=== PATIENT | female | born 1995 | race Caucasian/White ===

== ENCOUNTER 2018-03-08 14:17 | Emergency (ER) | payer OTHER ==
[~2018-03-08] VITALS: Ht 152.4 cm; Wt 58.9 kg
[2018-03-08 14:23] VITALS: TEMP 37.2; Ht 152.4 cm; Wt 58.9 kg
[2018-03-08] MEDS ORDERED: METOCLOPRAMIDE HCL INJ 5 MG/ML 2 ML VIAL IV STA (14:35)
[2018-03-08] MEDS ORDERED: KETOROLAC TROMETHAMINE 30 MG/ML VIAL IV STA (14:35)
[2018-03-08] MEDS ORDERED: SODIUM CHLORIDE 0.9% 1000ML 1,000 ML IV STA (14:35)
[2018-03-08] MEDS ORDERED: LTHSR/300 PO (14:40)
[2018-03-08] MEDS ORDERED: FLUO10CA23 PO (14:40)
[2018-03-08] MEDS ORDERED: OPTIRAY 320 IV PRN (14:45)
[2018-03-08 14:52] LABS: BASO % 0.3 %; BASO ABS # 0.02 K/uL (0-0.2); EOS % 3.2 %; EOS ABS # 0.23 K/uL (0-0.5); HEMATOCRIT 38.9 % (37-47); HEMOGLOBIN 12.8 g/dL (12.0-16.0); IG# 0.01 K/uL (0.00-0.02); LYMPH % 19.8 %; LYMPH ABS # 1.43 K/uL (1.2-3.4); MEAN CELL VOLUME 87.4 fL (80-100); MEAN CORPUSCULAR HEMOGLOBIN 28.8 pg (25-34); MEAN CORPUSCULAR HGB CONC 32.9 g/dl (32-36); MEAN PLATELET VOLUME 9.9 fL (7.4-10.4); MONO % 12.9 %; MONO ABS # 0.93 K/uL (0.11-0.59); NEUT % 63.7 %; NEUT ABS # 4.59 K/uL (1.4-6.5); PLATELET COUNT 229 K/uL (130-400); RED CELL DISTRIBUTION WIDTH CV 13.1 % (11.5-14.5); WHITE BLOOD COUNT 7.21 K/uL (4.8-10.8)
[2018-03-08 15:07] LABS: BLOOD UREA NITROGEN 12 mg/dl (7-18); CALCIUM 8.8 mg/dl (8.5-10.1); CARBON DIOXIDE 22 mmol/L (21-32); CREATININE 0.86 mg/dl (0.60-1.20); GLUCOSE 84 mg/dl (70-99); LIPASE 88 U/L (73-393); POTASSIUM 3.5 mmol/L (3.5-5.1); SODIUM 139 mmol/L (136-145)
[2018-03-08 15:10] LABS: ALKALINE PHOSPHATASE 81 U/L (45-117); ALT/SGPT 23 U/L (12-78); AST/SGOT 16 U/L (15-37); TOTAL PROTEIN 7.4 gm/dl (6.4-8.2)
--- NOTE | 2018-03-08 15:46 | EMERGENCY ROOM VISIT NOTE ---
History Report prepared by Kayleigh: Jennifer Gallagher Under the Supervision of: Dr. Robin Pizarro M.D. First contact with patient: 14:27 Chief Complaint: ABDOMINAL PAIN Stated Complaint: ABD PAIN,VOMITING,DIARRHEA History of Present Illness The patient is a 22 year old female who presents to the Emergency Room with complaints of persistent right-sided abdominal pain that began earlier today. She reports that she has been vomiting and experiencing diarrhea for the past 2 days. The patient went to [facility], where she was prescribed Dicyclomine and Ondansetron. She denies eating any questionable food sources, noting she has been unable to eat solid food since 3 days ago. The patient states that her mother had similar symptoms. She denies any chance of being because she had the depo shot, noting that she is unsure when her last menstrual period was. The patient takes lithium pills. Source of History: patient Onset: earliert today Position: abdomen (right-sided) Quality: other (right-sided abdominal pain) Timing: other (persistent) Associated Symptoms: + vomiting, + diarrhea Note: Associated symptoms: unable to eat solid food Review of Systems See HPI for pertinent positives & negatives. A total of 10 systems reviewed and were otherwise negative. Past Medical & Surgical Medical Problems: (1) Bronchitis Family History Hypertension Kidney disease Kidney stones Social History Smoking Status: Never Smoker Smokeless Tobacco Use: No Alcohol Use: none Drug Use: none Marital Status: single Housing Status: lives with roommate Occupation Status: [employer] Current/Historical Medications Scheduled Fluoxetine Hcl (Fluoxetine Hcl), 10 MG PO DAILY [place] Carbonate ([place] Carbonate), 300 MG PO DAILY Scheduled PRN Metoclopramide (Reglan), 10 MG PO Q6H PRN for Nausea Allergies Coded Allergies: No Known Allergies (Unverified , 03/08/18) Physical Exam Vital Signs Date Time Temp Pulse Resp B/P (MAP) Pulse Ox O2 Delivery O2 Flow Rate FiO2 03/08/18 18:23 58 16 101/57 98 03/08/18 16:33 68 16 101/48 98 Room Air 03/08/18 15:04 68 16 119/78 98 Room Air 03/08/18 14:23 37.2 68 20 113/66 100 Room Air Physical Exam GENERAL: Awake, alert, well-appearing, in no acute distress HENT: Normocephalic, atraumatic. Oropharynx unremarkable. EYES: Normal conjunctiva. Sclera non-icteric. NECK: Supple. No nuchal rigidity. FROM. No JVD. RESPIRATORY: Clear to auscultation. CARDIAC: Regular rate, normal rhythm. Extremities warm and well perfused. Pulses equal. ABDOMEN: Soft, non-distended. Mild right-sided tenderness to palpation. No rebound, but positive guarding. No masses. RECTAL: Deferred. MUSCULOSKELETAL: Chest examination reveals no tenderness. The back is symmetrical on inspection without obvious abnormality. There is no CVA tenderness to palpation. No joint edema. LOWER EXTREMITIES: Calves are equal size bilaterally and non-tender. No edema. No discoloration. NEURO: Normal sensorium. No sensory or motor deficits noted. SKIN: No rash or jaundice noted. Medical Decision & Procedures ER Provider Diagnostic Interpretation: Radiology results as stated below per my review and radiologist interpretation: CHEST ONE VIEW PORTABLE CLINICAL HISTORY: Atypical chest pain COMPARISON STUDY: No previous studies for comparison. FINDINGS: The cardiac and mediastinal contours are normal. There is no evidence of focal pulmonary consolidation. There is no evidence of failure. No pleural effusions are visualized.[There is subtle subcutaneous emphysema and pneumomediastinum. IMPRESSION: 1. Subtle pneumomediastinum and subcutaneous emphysema at the base the neck 2. No evidence of focal pulmonary consolidation Electronically signed by: Cyrus Whitehead M.D. 03/08/2018 5:58 PM Dictated Date/Time: 03/08/2018 5:57 PM ABD/PELVIS IV AND ORAL CONT CLINICAL HISTORY: 22 years-old Female presenting with Pt c/o RLQ abd pain. TECHNIQUE: Multidetector CT of the abdomen and pelvis was performed after the administration of oral and intravenous contrast. IV contrast: 118 mL of Optiray 320. A dose lowering technique was used consistent with the principles of ALARA (as low as reasonably achievable). COMPARISON: None. CT DOSE (mGy.cm): The estimated cumulative dose is 281.78 mGy.cm. FINDINGS: Irrigation Service Technician topogram: Unremarkable. Lung bases: Evidence of pulmonary interstitial emphysema (series 3 image 3). No focal opacity at the lung bases. Normal heart size. Pneumomediastinum evident. This involves both the posterior, middle, and anterior mediastinum. No pericardial or pleural effusion. Liver: Normal morphology. No liver lesion. Patent hepatic vasculature. Biliary: No intrahepatic or extrahepatic biliary ductal dilatation. Normal gallbladder. Pancreas: Normal. Spleen: Normal. Adrenal glands: Normal. Kidneys and ureters: Normal. No hydronephrosis. Proximal to mid ureters normal. Distal ureters somewhat poorly assessed secondary to pelvic vasculature. Bladder: Incompletely evaluated secondary to underdistention. Pelvic organs: Uterus and ovaries normal. Bowel: Normal appendix. No bowel obstruction. Mild wall thickening of the rectosigmoid colon suggested though this may be due to underdistention. No pericolonic inflammatory change. Peritoneal cavity: No free fluid or intraperitoneal gas. Lymph nodes: No enlarged lymph nodes in the abdomen or pelvis. Vasculature: Aorta and IVC patent and normal in caliber. Abdominal wall: Normal. Musculoskeletal: Normal. IMPRESSION: 1. Pulmonary interstitial emphysema with pneumomediastinum. 2. Mild apparent wall thickening of the rectosigmoid colon. This could suggest mild infectious colitis though this may be due to underdistention. No other evidence of acute intra-abdominal pathology. Specifically, no appendicitis. The report will be called/faxed according to standard departmental protocol. Electronically signed by: Ramon Clay M.D. 03/08/2018 5:28 PM Dictated Date/Time: 03/08/2018 5:23 PM Laboratory Results 03/08/18 14:38 Red Blood Count 4.45, Mean Corpuscular Volume 87.4, Mean Corpuscular Hemoglobin 28.8, Mean Corpuscular Hemoglobin Concent 32.9, Mean Platelet Volume 9.9, Neutrophils (%) (Auto) 63.7, Lymphocytes (%) (Auto) 19.8, Monocytes (%) (Auto) 12.9, Eosinophils (%) (Auto) 3.2, Basophils (%) (Auto) 0.3, Neutrophils # (Auto ) 4.59, Lymphocytes # (Auto) 1.43, Monocytes # (Auto) 0.93, Eosinophils # (Auto ) 0.23, Basophils # (Auto) 0.02 03/08/18 14:38 Test 03/08/18 14:38 03/08/18 15:07 03/08/18 15:09 White Blood Count 7.21 K/uL (4.8-10.8) Red Blood Count 4.45 M/uL (4.2-5.4) Hemoglobin 12.8 g/dL (12.0-16.0) Hematocrit 38.9 % (37-47) Mean Corpuscular Volume 87.4 fL (80-100) Mean Corpuscular Hemoglobin 28.8 pg (25-34) Mean Corpuscular Hemoglobin Concent 32.9 g/dl (32-36) Platelet Count 229 K/uL (130-400) Mean Platelet Volume 9.9 fL (7.4-10.4) Neutrophils (%) (Auto) 63.7 % Lymphocytes (%) (Auto) 19.8 % Monocytes (%) (Auto) 12.9 % Eosinophils (%) (Auto) 3.2 % Basophils (%) (Auto) 0.3 % Neutrophils # (Auto) 4.59 K/uL (1.4-6.5) Lymphocytes # (Auto) 1.43 K/uL (1.2-3.4) Monocytes # (Auto) 0.93 K/uL (0.11-0.59) Eosinophils # (Auto) 0.23 K/uL (0-0.5) Basophils # (Auto) 0.02 K/uL (0-0.2) RDW Standard Deviation 42.0 fL (36.4-46.3) RDW Coefficient of Variation 13.1 % (11.5-14.5) Immature Granulocyte % (Auto) 0.1 % Immature Granulocyte # (Auto) 0.01 K/uL (0.00-0.02) Anion Gap 7.0 mmol/L (3-11) Est Creatinine Clear Calc Drug Dose 83.8 ml/min Estimated GFR () 112.7 Estimated GFR (Non- 97.3 BUN/Creatinine Ratio 13.8 (10-20) Calcium Level 8.8 mg/dl (8.5-10.1) Total Bilirubin 0.4 mg/dl (0.2-1) Direct Bilirubin < 0.1 mg/dl (0-0.2) Aspartate Amino Transf (AST/SGOT) 16 U/L (15-37) Alanine Aminotransferase (ALT/SGPT) 23 U/L (12-78) Alkaline Phosphatase 81 U/L (45-117) Total Protein 7.4 gm/dl (6.4-8.2) Albumin 4.0 gm/dl (3.4-5.0) Lipase 88 U/L (73-393) [place] Level < 0.2 mMOL/L (0.6-1.2) Urine Color DK YELLOW Urine Appearance CLOUDY (CLEAR) Urine pH 5.5 (4.5-7.5) Urine Specific [place] 1.038 (1.000-1.030) Urine Protein 1+ (NEG) Urine Glucose (UA) NEG (NEG) Urine Ketones 1+ (NEG) Urine Occult Blood 2+ (NEG) Urine Nitrite NEG (NEG) Urine Bilirubin NEG (NEG) Urine Urobilinogen NEG (NEG) Urine Leukocyte Esterase MODERATE (NEG) Urine WBC (Auto) >30 /hpf (0-5) Urine RBC (Auto) 5-10 /hpf (0-4) Urine Hyaline Casts (Auto) 10-30 /lpf (0-5) Urine Epithelial Cells (Auto) >30 /lpf (0-5) Urine Bacteria (Auto) NEG (NEG) Urine Test NEG (NEG) Date/Time Source Procedure Growth Status 03/08/18 15:07 Stool C.difficile Toxin B Gene (PCR) - Final No C. difficile toxin B gene detected Complete Labs reviewed by ED physician. Medications Administered Medications (Trade) Dose Ordered Sig/Mike Route Start Time Stop Time Status Last Admin Dose Admin Sodium Chloride 1,000 ml @ 999 mls/hr Q1H1M STAT IV 03/08/18 14:35 03/08/18 15:35 DC 03/08/18 14:35 999 MLS/HR Metoclopramide HCl (Reglan Inj) 10 mg NOW STAT IV 03/08/18 14:35 03/08/18 14:38 DC 03/08/18 15:04 10 MG Ketorolac Tromethamine (Toradol Inj) 30 mg NOW STAT IV 03/08/18 14:35 03/08/18 14:38 DC 03/08/18 15:04 30 MG ED Course 1427: Past medical records reviewed. The patient was evaluated in room B8. A complete history and physical examination was performed. 1435: Ordered Toradol Inj 30mg IV, Reglan Inj 10mg IV, and Sodium Chloride 1000ml @ 999 mls/hr IV. 1445: Ordered Ioversol 125ml IV. 1605: I discussed the patient's case with Dr. Vasquez, thoracic surgery. He agrees with the test findings and would like to have the patient follow up with him by Tuesday. 1612: Upon reexamination the patient is resting comfortably. I discussed results and treatment plan with the patient. She verbalizes agreement and understanding. The patient is ready for discharge. Medical Decision Differential diagnosis: Etiologies such as appendicitis, diverticulitis, PUD, biliary pathology, UTI, pancreatitis, obstruction, mesenteric ischemia, aortic pathology, infections, inflammatory bowel disease, renal colic, as well as others were entertained. This is a 22-year-old female who presents the emergency department complaining of generalized abdominal pain. Patient has already been evaluated at [facility] and was sent here for for continuing abdominal pain. Her symptoms have been ongoing for the past several days. The patient was able to provide a stool sample here in the emergency department however I will note she does not have an elevation in her white blood cell count has a normal renal profile has a normal liver profile and normal lipase. She is not . Her lithium level is nontherapeutic. Serial abdominal examinations were performed on the patient in the emergency department and at no time to the patient exhibited surgical abdomen. In addition the patient was given normal saline bolus along with Reglan and Toradol. Repeat examination revealed improvement in the patient 's symptoms. Medication Reconcilliation Current Medication List: was personally reviewed by me Blood Pressure Screening Patient's blood pressure: Normal blood pressure Blood pressure disposition: Did not require urgent referral Consults Time Called: 1605 Consulting Physician: Dr. Vasquez, thoracic surger Returned Call: 1605 I discussed the patient's case with Dr. Vasquez, thoracic surgery. He agrees with the test findings and would like to have the patient follow up with him by Tuesday. Impression Primary Impression: Acute gastroenteritis Scribe Attestation The scribe's documentation has been prepared under my direction and personally reviewed by me in its entirety. I confirm that the note above accurately reflects all work, treatment, procedures, and medical decision making performed by me. Departure Information Dispostion Home / Self-Care Prescriptions Metoclopramide (Reglan) 10 Mg Tab 10 MG PO Q6H Y for Nausea, #6 TAB Prov: Robin Pizarro MD 03/08/18 Forms HOME CARE DOCUMENTATION FORM, IMPORTANT VISIT INFORMATION Patient Instructions My [facility] Additional Instructions NEED Follow up with Dr Vasquez's office TUESDAY You have been examined and treated today on an emergency basis only. This is not a substitute for, or an effort to provide, complete comprehensive medical care. It is impossible to recognize and treat all injuries or illnesses in a single emergency department visit. It is therefore important that you follow up closely with [facility]. Call as soon as possible for an appointment. Thank you for your time and consideration. I look forward to speaking with you again soon. Please don't hesitate to call us if you have any questions.
--- NOTE | 2018-03-08 17:30 | DIAGNOSTIC IMAGING REPORT ---
ABD/PELVIS IV AND ORAL CONT CLINICAL HISTORY: 22 years-old Female presenting with Pt c/o RLQ abd pain. TECHNIQUE: Multidetector CT of the abdomen and pelvis was performed after the administration of oral and intravenous contrast. IV contrast: 118 mL of Optiray 320. A dose lowering technique was used consistent with the principles of ALARA (as low as reasonably achievable). COMPARISON: None. CT DOSE (mGy.cm): The estimated cumulative dose is 281.78 mGy.cm. FINDINGS: Accessioner topogram: Unremarkable. Lung bases: Evidence of pulmonary interstitial emphysema (series 3 image 3). No focal opacity at the lung bases. Normal heart size. Pneumomediastinum evident. This involves both the posterior, middle, and anterior mediastinum. No pericardial or pleural effusion. Liver: Normal morphology. No liver lesion. Patent hepatic vasculature. Biliary: No intrahepatic or extrahepatic biliary ductal dilatation. Normal gallbladder. Pancreas: Normal. Spleen: Normal. Adrenal glands: Normal. Kidneys and ureters: Normal. No hydronephrosis. Proximal to mid ureters normal. Distal ureters somewhat poorly assessed secondary to pelvic vasculature. Bladder: Incompletely evaluated secondary to underdistention. Pelvic organs: Uterus and ovaries normal. Bowel: Normal appendix. No bowel obstruction. Mild wall thickening of the rectosigmoid colon suggested though this may be due to underdistention. No pericolonic inflammatory change. Peritoneal cavity: No free fluid or intraperitoneal gas. Lymph nodes: No enlarged lymph nodes in the abdomen or pelvis. Vasculature: Aorta and IVC patent and normal in caliber. Abdominal wall: Normal. Musculoskeletal: Normal. IMPRESSION: 1. Pulmonary interstitial emphysema with pneumomediastinum. 2. Mild apparent wall thickening of the rectosigmoid colon. This could suggest mild infectious colitis though this may be due to underdistention. No other evidence of acute intra-abdominal pathology. Specifically, no appendicitis. The report will be called/faxed according to standard departmental protocol. Electronically signed by: Ramon Clay M.D. 03/08/2018 5:28 PM Dictated Date/Time: 03/08/2018 5:23 PM
[2018-03-08] MEDS ORDERED: METO-157 PO (17:51)
--- NOTE | 2018-03-08 18:00 | DIAGNOSTIC IMAGING REPORT ---
CHEST ONE VIEW PORTABLE CLINICAL HISTORY: Atypical chest pain COMPARISON STUDY: No previous studies for comparison. FINDINGS: The cardiac and mediastinal contours are normal. There is no evidence of focal pulmonary consolidation. There is no evidence of failure. No pleural effusions are visualized.[There is subtle subcutaneous emphysema and pneumomediastinum. IMPRESSION: 1. Subtle pneumomediastinum and subcutaneous emphysema at the base the neck 2. No evidence of focal pulmonary consolidation Electronically signed by: Cyrus Whitehead M.D. 03/08/2018 5:58 PM Dictated Date/Time: 03/08/2018 5:57 PM
[2018-03-08 18:23] VITALS: BP 101/57; PULSE 58; O2SAT 98
== END 2018-03-08 18:24 | disposition home or self-care (01) ==
LOC: C.EDB 14:18
DX: K52.9 Noninfective gastroenteritis and colitis, unspecified (principal)

== ENCOUNTER → 2018-03-10 | Outpatient (CLI) | payer OTHER ==
[~2018-03-10] MED LIST: FLUO10CA23 PO; LTHSR/300 PO; METO-157 PO
--- NOTE | 2018-03-10 11:19 | DIAGNOSTIC IMAGING REPORT ---
CHEST 2 VIEWS ROUTINE CLINICAL HISTORY: 23 years-old Female presenting with J98.2 [id number]. TECHNIQUE: PA and lateral views of the chest were obtained. COMPARISON: 03/08/2018. FINDINGS: Previously noted pneumomediastinum and soft tissue emphysema at the base the neck is no longer present. Cardiomediastinal silhouette normal. Lungs and pleural spaces clear. Osseous structures normal. Upper abdomen normal. IMPRESSION: 1. Pneumomediastinum and soft tissue emphysema at the base of the neck no longer visualized. No acute cardiopulmonary disease. Electronically signed by: Ramon Clay M.D. 03/10/2018 11:18 AM Dictated Date/Time: 03/10/2018 11:16 AM
== END ==
LOC: C.RAD 11:00
PROVIDERS: ATTEND Surgery
DX: J98.2 Interstitial emphysema (principal)